=== PATIENT | female | born 1940 | race Caucasian/White ===

== ENCOUNTER 2017-10-03 10:39 | Emergency (ER) | payer MEDICARE ==
[~2017-10-03] VITALS: Ht 157.5 cm; Wt 54.4 kg
--- NOTE | 2017-10-03 11:34 | NUR ---
Patient discharged to home in stable conditon. Written and verbal after care instructions given. Patient verbalizes understanding of instructions.pt walks in steady gait. pt with .
== END 2017-10-03 11:46 | disposition home or self-care (01) ==
LOC: ER 10:42
DX: S93.402A Sprain of unspecified ligament of left ankle, initial encounter (principal); Z88.0 Allergy status to penicillin; W10.9XXA Fall (on) (from) unspecified stairs and steps, initial encounter; Y93.89 Activity, other specified; Y92.89 Other specified places as the place of occurrence of the external cause; Y99.8 Other external cause status
CPT/HCPCS: 73502; 73610; 73630; 99284; A4663